=== PATIENT | male | born 1955 | race Caucasian/White ===

== ENCOUNTER 2024-07-01 08:44 | Outpatient (CLI) | payer BC, MEDICARE ==
[2024-07-01 09:41] LABS: #Basophils 0.04 10x3/uL (0.0-0.2); #Eosinphils 0.04 10x3/uL (0.0-0.5); #Monocytes 0.42 10x3/uL (0.0-1.1); #Neutrophils 2.94 10x3/uL (1.5-8.4); %Basophils 0.9 % (0.0-2.0); %Eosinophils 0.9 % (0.0-6.0); %Lymphocytes 26.6 % (18.0-47.0); %Monocytes 8.9 % (0.0-10.0); %Neutrophils 62.5 % (40.0-75.0); Hematocrit 46.7 % (38.8-50.0); Hemoglobin 15.3 g/dL (13.5-17.5); Mean Corpuscular HGB CONC 32.8 g/dL (32.0-36.0); Mean Corpuscular Hemoglobin 30.1 pg (27.0-33.0); Mean Corpuscular Volume 91.7 fL (81.2-95.1); Mean Platelet Volume 9.8 fL (7.4-10.4); Platelet Count 242 10x3/uL (150-450); RBC Distribution Width 12.3 % (11.5-14.5); Red Blood Cell (RBC) Count 5.09 10x6/uL (4.32-5.72); White Blood Cell (WBC) Count 4.7 10x3/uL (3.5-10.5)
[2024-07-01 10:17] LABS: Anion Gap 13 mmol/L (10-20); BUN (Urea Nitrogen) 18 mg/dL (8.4-25.7); Calc. Creatinine Clearance 0 mL/min (70-130); Carbon Dioxide 24 mmol/L (23-31); Chloride 108 mmol/L (98-107); Estimated GFR 67; Glucose 102 mg/dL (80-115); Potassium 4.6 mmol/L (3.5-5.1); Sodium 140 mmol/L (136-145)
[2024-07-01 10:30] LABS: Calcium 9.5 mg/dL (7.8-10.44)
== END 2024-07-01 08:45 | disposition home or self-care (01) ==
LOC: CSHLAB 08:44
PROVIDERS: ATTEND Surgery
DX: Z01.818 Encounter for other preprocedural examination (principal); K40.90 Unilateral inguinal hernia, without obstruction or gangrene, not specified as recurrent
CPT/HCPCS: 80048; 85025; 93005; 93010

== ENCOUNTER 2024-07-26 07:01 | Day surgery (SDC) | payer BC, MEDICARE ==
[2024-07-01 09:03] VITALS: BMI 30.3
[2024-07-26] MEDS ORDERED: Famotidine/PF 20 mg/2ml Vial ONE (07:47)
[2024-07-26] MEDS ORDERED: CEFAZOLIN 2 GM VIAL ONE (08:43)
[2024-07-26] MEDS ORDERED: Bupivacaine/Epinephrine 0.25% 30 ML VIAL ONE (08:44)
[2024-07-26] MEDS ORDERED: Rocuronium Bromide 10 MG/ML (10ML VIAL) ONE (08:45)
[2024-07-26] MEDS ORDERED: Lidocaine 1% PF 5 ML VIAL ONE (08:45)
[2024-07-26] MEDS ORDERED: PROPOFOL 20 ML ONE (08:45)
[2024-07-26] MEDS ORDERED: fentaNYL 50 mcg/mL 1 mL Vial ONE ×3 (08:45→10:17)
[2024-07-26] MEDS ORDERED: Midazolam HCl 2 mg/2 ml Vial ONE (09:16)
[2024-07-26] MEDS ORDERED: Ketorolac Tromethamine 30 MG (1 mL) VIAL ONE (09:42)
[2024-07-26] MEDS ORDERED: Ondansetron PF 4 MG/2 ML Vial ONE (09:42)
[2024-07-26] MEDS ORDERED: SUGAMMADEX SODIUM 200 MG/2 ML VIAL ONE (09:42)
== END 2024-07-26 11:45 | disposition home or self-care (01) ==
LOC: CSHSDC 07:01
PROVIDERS: ATTEND Surgery
PROC: 0YU64JZ Supplement Left Inguinal Region with Synthetic Substitute, Percutaneous Endoscopic Approach (ICD-10-PCS; principal; 2024-07-26)
DX: K40.90 Unilateral inguinal hernia, without obstruction or gangrene, not specified as recurrent (principal); E78.5 Hyperlipidemia, unspecified; Z79.899 Other long term (current) drug therapy
CPT/HCPCS: C1781; J1885; J2250; J2405; J2704; J3010; J3490; S2900

== ENCOUNTER 2024-10-07 12:27 | Outpatient (CLI) | payer BC, MEDICARE ==
[~2024-10-07 12:27] MED LIST: Magnevist 469MG/ML 20 ML VIAL ONE
== END 2024-10-07 12:28 | disposition home or self-care (01) ==
LOC: CSHMRI 12:27
PROVIDERS: ATTEND Urology
DX: C61 Malignant neoplasm of prostate (principal)
CPT/HCPCS: 36415; 72197; 82565